=== PATIENT | male | born 1995 | race Caucasian/White ===

== ENCOUNTER 2018-01-29 10:16 | Outpatient (CLI) | payer OTHER ==
[2018-01-30 13:51] LABS: HEPATITIS B CORE AB TOTAL NON-REACTIVE (NON-REACTIVE); HEPATITIS B SURFACE ANTIGEN NON-REACTIVE (NON-REACTIVE)
== END 2018-01-29 10:17 | disposition home or self-care (01) ==
LOC: LAB.WCP 10:16
PROVIDERS: ATTEND Family Medicine
DX: Z23 Encounter for immunization (principal)
CPT/HCPCS: 36415; 86317; 86704; 86787; 87340

== ENCOUNTER 2019-04-03 08:18 | Outpatient (CLI) | payer OTHER ==
--- NOTE | 2019-04-03 11:33 | XRAY Report ---
Reason: SCREENING Procedure Date: 04/03/2019 Accession Number: [id number] / [id number] Procedure: [facility] - Chest 2 View X-Ray CPT Code: 86509 FULL RESULT: EXAM: CHEST RADIOGRAPHY EXAM DATE: 04/03/2019 08:35 AM. CLINICAL HISTORY: Preemployment screening radiograph. COMPARISON: None. TECHNIQUE: 2 views. FINDINGS: Lungs/Pleura: No focal opacities evident. No pleural effusion. No pneumothorax. Normal volumes. Mediastinum: Heart and mediastinal contours are unremarkable. Other: None. IMPRESSION: Normal 2-view chest radiography. [facility]
== END 2019-04-03 08:19 | disposition home or self-care (01) ==
LOC: DI.WCP 08:18
PROVIDERS: ATTEND Family Medicine
DX: Z02.1 Encounter for pre-employment examination (principal); Z13.9 Encounter for screening, unspecified
CPT/HCPCS: 71046